=== PATIENT | male | born 1990 | race Two or more races ===

== ENCOUNTER → 2016-12-29 | Day surgery (SDC) | payer OTHER ==
[~2016-12-29] MED LIST: BENTYL10 M1 PO; BENTYL20 M1; LOMOTIL WHITE2.5 M1; OMEPRAZOLE20 M1; XANAX1 MG PO; ZESTRIL40 MG PO
--- NOTE | ~2016-12-29 | OR ---
Unit #: [id number] #: [id number] Patient: ECTOR LI [id number] [address] [place], [place] [address] [id number] MR#: [id number] NAME: ECTOR LI. ROOM: Date of Procedure: 12/29/2016 Admission Date: 12/29/2016 Surgeon: Az Aranda M.D. : 1990 Attending Physician: Az Aranda M.D. Primary Care Physician: Frederick Dasilva M.D. OPERATIVE REPORT PRIMARY CARE PHYSICIAN Frederick Dasilva M.D. PREOPERATIVE DIAGNOSES The patient presented with a history of retrosternal ascending heartburn, postprandial dyspepsia, and epigastric pain. In addition, he also has history of right and left lower quadrant abdominal pain and chronic watery nonbloody diarrhea. PROCEDURES PERFORMED Upper gastrointestinal endoscopy and biopsy as well as colonoscopy with biopsies. POSTOPERATIVE DIAGNOSES For upper endoscopy: Completely normal examination up to third part of duodenum. A biopsy was obtained from the antrum for CLOtest. For colonoscopy: Completely normal examination up to cecum and terminal ileum. The quality of the prep was excellent. Multiple random colonic biopsies were obtained from throughout the colon to rule out microscopic or collagenous colitis. RECOMMENDATIONS The patient will be started on daily omeprazole 20 mg p.o. daily as well as p.r.n. Lomotil. In addition, he will use p.r.n. Bentyl in case of any abdominal pain. FOLLOWUP The patient will be followed up in the office in 3 to 4 months' time. SEDATION USED MAC. DESCRIPTION OF PROCEDURE Following detailed explanation of potential risks and complications of an upper endoscopy and a colonoscopy, namely perforation, bleeding, and complication related to sedation, the patient was brought to GI lab and laid in the left lateral decubitus position. Lubricated tip of the Olympus video upper endoscope was passed through the bite block into the proximal esophagus under direct vision. The entire esophageal mucosa was examined and appeared normal. Z-line was nicely demarcated, there being no esophagitis or hiatus hernia. The scope was then advanced into the Unit #: [id number] #: [id number] Patient: ECTOR LI gastric cavity and the latter was insufflated. Mucosa of the fundus, body, and antrum was examined and appeared unremarkable. Pylorus was intubated with visualization of the normal duodenal bulb and second and third part of the duodenum. Upon withdrawal and retroflexion, incisura, cardia, and greater curve was examined and no additional findings were noted. Biopsies were obtained from the antrum for CLOtest. The scope was then withdrawn in the distal esophagus. The entire esophageal mucosa was examined all the way up to pharynx. No additional findings were noted. The examination table was then turned by 180 degrees and the patient positioned for a colonoscopy. A digital rectal examination was performed which was normal. Lubricated tip of the Olympus video colonoscope was inserted through the anus and advanced under direct vision. The scope was advanced past rectosigmoid into descending colon. No diverticula were noticed in this area. The scope tip was then navigated all the way up to cecum with visualization of the ileocecal valve and the appendiceal orifice. Preparation was excellent with good visualization and photodocumentation was obtained. Last few inches of the terminal ileum were also visualized after intubation of the ileocecal valve and appeared normal. Successive segments of the colonic mucosa were examined upon withdrawal and appeared unremarkable. There being no polyps, mass lesions, AVMs, or diverticula. The patient did not have any hemorrhoids at the anal verge. Multiple random colonic biopsies were obtained from throughout the colon to rule out microscopic or collagenous colitis. The scope was then withdrawn and the patient returned to recovery area. He tolerated the procedure without any postprocedure complications. Dictated by... Rj Hung/nishi TD: 12/30/2016 02:23 JOB #: [id number] OPERATIVE REPORT Page 1 of 1 X Az Aranda MD X PROCEDURE OPERATIVE NOTE
== END | disposition home or self-care (01) ==
LOC: COPS 11:30
DX: K52.9 Noninfective gastroenteritis and colitis, unspecified (principal); K62.89 Other specified diseases of anus and rectum; K21.9 Gastro-esophageal reflux disease without esophagitis; F17.210 Nicotine dependence, cigarettes, uncomplicated; Z87.19 Personal history of other diseases of the digestive system
CPT/HCPCS: 88305; J2250